=== PATIENT | female | born 2000 | race Hispanic/Latino ===

== ENCOUNTER 2024-06-09 09:35 | Outpatient (CLI) | payer BC ==
[2024-06-09 10:53] LABS: #Basophils 0.05 10x3/uL (0.0-0.2); %Basophils 0.4 % (0.0-1.0); %Eosinophils 4.2 % (0.0-10.0); %Lymphocytes 27.2 % (21.0-51.0); %Monocytes 5.5 % (0.0-10.0); %Neutrophils 62.5 % (42.0-75.0); Hematocrit 41.1 % (36.0-47.0); Hemoglobin 13.8 g/dL (12.0-16.0); Mean Corpuscular HGB CONC 33.6 g/dL (32.0-36.0); Mean Corpuscular Hemoglobin 29.6 pg (27.0-31.0); Mean Platelet Volume 9.6 fL (7.4-10.4); Platelet Count 330 10x3/uL (130-400); RBC Distribution Width 12.7 % (11.5-14.5); Red Blood Cell (RBC) Count 4.67 mill/uL (4.20-5.40)
[2024-06-09 11:14] LABS: ALT (SGPT) 26 U/L (8-55); AST (SGOT) 19 U/L (5-34); Albumin 4.1 g/dL (3.5-5.0); Alkaline Phosphatase 56 U/L (40-110); Anion Gap 14 mmol/L (10-20); BUN (Urea Nitrogen) 13 mg/dL (7.0-18.7); Bilirubin, Total 0.6 mg/dL (0.2-1.2); Calc. Creatinine Clearance 0 mL/min (70-130); Calcium 9.7 mg/dL (7.8-10.44); Carbon Dioxide 18 mmol/L (22-29); Chloride 107 mmol/L (98-107); Estimated GFR 131; Globulin 3.8 g/dL (2.4-3.5); Glucose 86 mg/dL (70-105); Potassium 3.6 mmol/L (3.5-5.1); Protein, Total 7.9 g/dL (6.0-8.3); Sodium 135 mmol/L (136-145)
[2024-06-09 11:32] LABS: BHCG - Serum Negative (NEGATIVE); Pregs Control Background? CLEAR/WHITE (CLR/WHITE); Pregs Control Bar Appear? YES (CONTROL BAR)
== END 2024-06-09 09:36 | disposition home or self-care (01) ==
LOC: LABBT 09:35
PROVIDERS: ATTEND Surgery
DX: Z01.812 Encounter for preprocedural laboratory examination (principal); E66.01 Morbid (severe) obesity due to excess calories
CPT/HCPCS: 80053; 83036; 84703; 85025; 93005; 93010

== ENCOUNTER 2024-06-17 05:54 | Observation (INO) | payer BC ==
[2024-06-09 10:29] VITALS: BMI 40.6
[2024-06-17] MEDS ORDERED: Heparin 5,000 UNITS/ML VIAL ONE (06:14)
[2024-06-17] MEDS ORDERED: EPINEPHrine 1 MG/ML VIAL ONE (06:41)
[2024-06-17] MEDS ORDERED: Propofol 500 MG/50 ML VIAL ONE (06:53)
[2024-06-17] MEDS ORDERED: PROPOFOL 20 ML ONE (07:01)
[2024-06-17] MEDS ORDERED: fentaNYL PF 100 MCG/2 ML SYRINGE ONE (07:01)
[2024-06-17] MEDS ORDERED: Lidocaine 1% PF 5 ML VIAL ONE (07:04)
[2024-06-17] MEDS ORDERED: Rocuronium Bromide 10 MG/ML (10ML VIAL) ONE (07:04)
[2024-06-17] MEDS ORDERED: Midazolam HCl 2 mg/2 ml Vial ONE (07:15)
[2024-06-17] MEDS ORDERED: CEFAZOLIN 2 GM VIAL ONE (07:21)
[2024-06-17] MEDS ORDERED: Dexamethasone 20 MG/5 ML VIAL ONE (07:44)
[2024-06-17] MEDS ORDERED: Dexmedetomidine 200 MCG/2 ML VIAL ONE (07:52)
[2024-06-17] MEDS ORDERED: Ketorolac Tromethamine 30 MG (1 mL) VIAL ONE (08:07)
[2024-06-17] MEDS ORDERED: Ondansetron PF 4 MG/2 ML Vial ONE (08:07)
[2024-06-17] MEDS ORDERED: Promethazine HCl 25 MG/ML VIAL IM PRN ×2 (08:12→09:13)
[2024-06-17] MEDS ORDERED: Ondansetron HCl/PF 4 MG/2 ML Vial IVP PRN (08:12)
[2024-06-17] MEDS ORDERED: SUGAMMADEX SODIUM 200 MG/2 ML VIAL ONE ×2 (08:17→08:27)
[2024-06-17] MEDS ORDERED: fentaNYL 50 mcg/mL 1 mL Vial ONE ×4 (08:58→11:05)
[2024-06-17] MEDS ORDERED: Dextrose 50% Abboject 50 ML SYRINGE SLOW IVP PRN (09:13)
[2024-06-17] MEDS ORDERED: diphenhydrAMINE 50 MG/ML VIAL IVP PRN (09:13)
[2024-06-17] MEDS ORDERED: hydrALAZINE 20 MG/ML VIAL SLOW IVP PRN (09:13)
[2024-06-17] MEDS ORDERED: Ipratropium/Albuterol 3 ML NEB NEB PRN (09:13)
[2024-06-17] MEDS ORDERED: Dextrose 5% in Water 1,000 ML IV PRN (09:13)
[2024-06-17] MEDS ORDERED: oxyCODONE 5 MG TAB PO PRN (09:13)
[2024-06-17] MEDS ORDERED: Glucagon 1 MG/ML KIT IM PRN (09:13)
[2024-06-17] MEDS ORDERED: fentaNYL 50 mcg/mL 1 mL Vial SLOW IVP PRN (09:23)
[2024-06-17] MEDS ORDERED: Promethazine HCl 25 MG/ML VIAL ONE (09:42)
[2024-06-17] MEDS: D5 1/2 NS w/20 mEq KCL 1,000 ML IV SCH (13:31)
[2024-06-17] MEDS: busPIRone HCl 5 MG TAB PO SCH ×2 (13:31→14:39)
[2024-06-17] MEDS: Enoxaparin 40 MG (0.4 mL) SYRINGE SC SCH (13:31)
[2024-06-17] MEDS: Aripiprazole 10 MG TAB PO SCH (13:31)
[2024-06-17] MEDS: Pantoprazole 40 MG VIAL IVP SCH (13:32)
[2024-06-17] MEDS: Ondansetron PF 4 MG/2 ML Vial IVP PRN (14:39)
[2024-06-17] MEDS: Acetaminophen 650 MG/20.3 ML UDCUP PO SCH (14:39)
[2024-06-17] MEDS: Lactated Ringer's 1,000 ML IV SCH (17:22)
[2024-06-17] MEDS: Sertraline 25 MG TAB PO SCH (21:19)
[2024-06-18 06:34] LABS: #Basophils 0.04 10x3/uL (0.0-0.2); %Basophils 0.3 % (0.0-1.0); %Eosinophils 0.2 % (0.0-10.0); %Monocytes 7.5 % (0.0-10.0); %Neutrophils 69.7 % (42.0-75.0); Hematocrit 39.1 % (36.0-47.0); Hemoglobin 13.2 g/dL (12.0-16.0); Mean Corpuscular HGB CONC 33.8 g/dL (32.0-36.0); Mean Corpuscular Hemoglobin 29.7 pg (27.0-31.0); Mean Corpuscular Volume 87.9 fL (78.0-98.0); Mean Platelet Volume 10.1 fL (7.4-10.4); Platelet Count 271 10x3/uL (130-400); RBC Distribution Width 12.8 % (11.5-14.5); Red Blood Cell (RBC) Count 4.45 mill/uL (4.20-5.40)
[2024-06-18 06:52] LABS: Anion Gap 13 mmol/L (10-20); BUN (Urea Nitrogen) 6 mg/dL (7.0-18.7); Calc. Creatinine Clearance 226 mL/min (70-130); Calcium 9.2 mg/dL (7.8-10.44); Carbon Dioxide 20 mmol/L (22-29); Chloride 107 mmol/L (98-107); Estimated GFR 129; Glucose 89 mg/dL (70-105); Potassium 3.6 mmol/L (3.5-5.1); Sodium 136 mmol/L (136-145)
[2024-06-18 07:37] VITALS: BP 124/65; TEMP 98.9
[2024-06-18] MEDS: Aripiprazole 10 MG TAB PO SCH (08:23)
[2024-06-18] MEDS: Enoxaparin 40 MG (0.4 mL) SYRINGE SC SCH (08:24)
[2024-06-18] MEDS: Pantoprazole 40 MG VIAL IVP SCH (08:25)
[2024-06-18] MEDS: traMADol HCl 50 MG TAB PO PRN (11:24)
== END 2024-06-18 11:46 | disposition home or self-care (01) ==
LOC: SDC 05:54 → EDSTATUS 09:30 → SURG A 14:10
PROVIDERS: ADMIT Surgery; ATTEND Surgery
PROC: 0DB64Z3 Excision of Stomach, Percutaneous Endoscopic Approach, Vertical (ICD-10-PCS; principal; 2024-06-18)
DX: E66.01 Morbid (severe) obesity due to excess calories (principal); F41.9 Anxiety disorder, unspecified; F32.A Depression, unspecified; Z79.899 Other long term (current) drug therapy; Z68.41 Body mass index [BMI] 40.0-44.9, adult
CPT/HCPCS: 36415; 36416; 80048; 85025; 88307; J0171; J1100; J1644; J1650; J1885; J2250; J2405; J2470; J2550; J2704; J3010; J7120; S2900

== ENCOUNTER 2024-06-25 09:06 | Day surgery (SDC) | payer BC ==
[~2024-06-25 09:06] MED LIST: Ondansetron PF 4 MG/2 ML Vial IVP PRN
[2024-06-25] MEDS: Multivitamins, Adult 10 ML, Thiamine HCl 100 MG in Sodium Chloride 0.9% 1,000 ML IV SCH (10:39)
[2024-06-25] MEDS: Sodium Chloride 0.9% 1,000 ML IV SCH (10:53)
[2024-06-25 11:16] VITALS: BP 120/64; TEMP 98
== END 2024-06-25 13:35 | disposition home or self-care (01) ==
LOC: ONC/OP 09:06
PROVIDERS: ATTEND Surgery
DX: E86.0 Dehydration (principal)
CPT/HCPCS: 96361; 96365; J3411; J7030